=== PATIENT | female | born 1965 | race American Indian/Alaskan Native ===

== ENCOUNTER 2016-08-20 06:12 | Day surgery (SDC) | payer BC ==
[2016-08-16 13:49] LABS: Basophils % (Auto) 0.6 % (0.0-1.8); Eosinophils % (Auto) 2.1 % (0.0-4.3); Hematocrit 31.3 % (30.3-42.9); Hemoglobin 10.4 gm/dl (10.1-14.3); Mean Corpuscular HGB Conc 33 % (30-34); Mean Corpuscular Hemoglobin 30 pg (28-32); Mean Corpuscular Volume 90 fl (79-97); Platelet Count 228 K/mm3 (140-440); Red Blood Count 3.49 M/mm3 (3.65-5.03); Red Cell Distribution Width 15.5 % (13.2-15.2); White Blood Count 6.3 K/mm3 (4.5-11.0)
[2016-08-16 14:04] LABS: Alanine Aminotransferase 18 units/L (7-56); Albumin 3.9 g/dL (3.9-5); Albumin/Globulin Ratio 1.3 %; Alkaline Phosphatase 73 units/L (35-129); Anion Gap 14 mmol/L; BUN/Creatinine Ratio 26.66; Bilirubin,Total 0.5 mg/dL (0.1-1.2); Blood Urea Nitrogen 16 mg/dL (7-17); Carbon Dioxide 27 mmol/L (22-30); Chloride 99.9 mmol/L (98-107); Glucose 104 mg/dL (65-100); Potassium 3.5 mmol/L (3.6-5.0); Sodium 137 mmol/L (137-145); Total Protein 6.9 g/dL (6.3-8.2)
[~2016-08-20 06:12] MED LIST: NACL 0.9% 1000 ML 1,000 ML IV SCH; PEPCID PO NR; VERSED IV NR
[2016-08-20] MEDS ORDERED: NACL BACTERIOSTATIC INFILTRATI ONE (06:15)
[2016-08-20] MEDS ORDERED: MARCAINE 0.25% INFILTRATI ONE ×3 (06:56→08:02)
[2016-08-20] MEDS ORDERED: XYLOCAINE 1%/ EPI 1:100,000 INFILTRATI ONE ×4 (06:57→08:02)
[2016-08-20] MEDS ORDERED: ANCEF/STERILE WATER 2 GM/20 ML IV NR (07:00)
[2016-08-20] MEDS ORDERED: ZOFRAN IV PRN (07:08)
[2016-08-20] MEDS ORDERED: DILAUDID IV PRN (07:08)
--- NOTE | 2016-08-20 07:09 | Anesthesia Day of Surgery ---
Anesthesia Day of Surgery - Day of Surgery Patient Examined: Yes Patient H&P Reviewed: Yes Patient is NPO: Yes Beta Blockers: No Cardiac Clearance: No Pulmonary Clearance: No
--- NOTE | 2016-08-20 07:11 | Anesthesia Consultation ---
Anesthesia Consult and Med Hx Date of service: 08/20/16 - Airway Anesthetic Teeth Evaluation: Good ROM Head & Neck: Adequate Mental/Hyoid Distance: Inadequate Mallampati Class: Class III Intubation Access Assessment: Probably Good - Pulmonary Exam CTA: Yes (clear blbs) - Cardiac Exam Cardiac Exam: RRR - Pre-Operative Health Status ASA Pre-Surgery Classification: ASA3 Proposed Anesthetic Plan: General - Pulmonary SOB: No Hx Sleep Apnea: (HIGH RISK) - Cardiovascular System Hx Hypertension: Yes - Central Nervous System Hx Neuromuscular Disorder: Yes (RA) Hx Back Pain: (THORACIC SPONDYLOSIS NOTED ON PCP NOTES) Hx Psychiatric Problems: No - Gastrointestinal Hx Ulcer: Yes (gerd) - Hematic Hx Anemia: Yes - Other Systems Hx Alcohol Use: Yes (WINE ON SPECIAL OCCASIONS) Hx Substance Use: No Hx Cancer: No
[2016-08-20] MEDS ORDERED: DIPRIVAN 10 MG/ML IV ONE (07:12)
[2016-08-20] MEDS ORDERED: SUBLIMAZE ONE (07:12)
[2016-08-20] MEDS ORDERED: DECADRON ONE (07:32)
[2016-08-20] MEDS ORDERED: LACTATED RINGERS 1,000 ML IV SCH (08:00)
[2016-08-20] MEDS ORDERED: QUELICIN ONE (08:27)
[2016-08-20] MEDS ORDERED: XYLOCAINE MPF 2% ONE (08:27)
[2016-08-20] MEDS ORDERED: NEOSTIGMINE ONE (08:27)
[2016-08-20] MEDS ORDERED: ZEMURON IV ONE (08:27)
[2016-08-20] MEDS ORDERED: ZOFRAN ONE (08:27)
[2016-08-20] MEDS ORDERED: ROBINUL ONE (08:27)
--- NOTE | 2016-08-20 09:16 | Post Operative Note ---
Pre-op diagnosis: 1. Calcaneal Spur right 2. Achilles tendinosis right Post-op diagnosis: same Findings: See operative report. Procedure: 1. Achilles debridement and repair right side. 2. Calcaneal spur ressection right side. Anesthesia: GETA Surgeon: JOHANN JOHNSON Estimated blood loss: 50-100ml Pathology: list (Bone spur right calcaneus) Specimen disposition: to lab Condition: stable Disposition: same day
--- NOTE | 2016-08-20 09:17 | Discharge Summary ---
Short Stay Discharge Plan Activity: no restrictions Weight Bearing Status: Non-Weight Bearing Diet: regular Wound: keep clean and dry Follow up with: GENEVIEVE DOUGLAS MD [Primary Care Provider] - 7 Days
--- NOTE | 2016-08-20 10:10 | Post Anesthesia Evaluation ---
- Post Anesthesia Evaluation Patient Participated: No (resting) Airway Patent: Yes Stable Respiratory Function: Yes Nausea/Vomiting: No Temp > 96.8F: Yes Pain Manageable: Yes Adequeate Hydration: Yes Anesthesia Complications: No Block Receding Appropriately: Not Applicable Patient on Ventilator: No
--- NOTE | 2016-08-20 10:16 | Operative Report ---
SURGEON: Rakan Lea DPM. DUMBWAITER OPERATOR: None. PREOPERATIVE DIAGNOSIS: 1.Painful Achilles tendinosis, right side. 2.Calcaneal heel spur, right side. POSTOPERATIVE DIAGNOSIS: 1.Painful Achilles tendinosis, right side. 2.Calcaneal heel spur, right side. PROCEDURE: 1.Achilles tendon debridement and repair, right side. 2.Calcaneal spur resection, right side. ANESTHESIA: General inhalational with local anesthetic consisting of 1% lidocaine with epinephrine and 0.25% Marcaine plain 50:50 mixture x approximately 20 mL. HEMOSTASIS: Epinephrine and local 1:200,000. ESTIMATED BLOOD LOSS: Approximately 50 mL. MATERIALS: Mitek G2 anchor x 1. INJECTABLES: Local as above. PATHOLOGY: Bone sent for path. COMPLICATIONS: None. . OPERATIVE SUMMARY: On this date, the patient was deemed an appropriate surgical candidate, brought to the operating room and placed on the operating table in the prone position after induction of general inhalational anesthesia. The right foot, ankle and leg were prepped and draped in the usual sterile fashion and following procedure was then carried out. ACHILLES TENDON DEBRIDEMENT AND REPAIR, RIGHT SIDE: Attention was directed to the posterior aspect of the calcaneal region where with a local anesthetic was carried out. Then, longitudinal incision was carried out along the posterior midline calcaneal region. Dissection was carried through the skin layer and down to the level of superficial fascia with care to protect neurovascular structures. Electrocautery was deemed necessary for surgical hemostasis. Dissection was carried through this layer down to the level of the deep fascia. Deep fascia was notably thickened and scarred. A very large bursa was noted in this area and this was excised. Dissection was carried down through the deep fascia and paratenon with care to preserve this layer. Then entered into the Achilles tendon where it was notably thickened and irritated. I debrided a substantial amount of thickness off of the tendon. There was then notable calcaneal spurs on the dorsal aspect of the posterior tibial as well as the insertional area of the Achilles. The Achilles was then T'd out at the calcaneal spur region and this led to the following procedure. CALCANEAL SPUR RESECTION, RIGHT SIDE: Attention was then directed to these posterior spurs were 10 mm osteotomes were used to resect both spurs from this area. An offset reciprocating rasp was then used to smooth all rough remaining edges. This notably restored the contour to the posterior calcaneal area and allowed for debulking of this area. Once this was carried out, the resumption of the Achilles tendon repair then was carried out. I went ahead and inserted a G2 anchor into the posterior calcaneal region after drilling a hole. Once this was done and the anchor was noted to be satisfactory, pass the suture tags from the suture to the two slips of the Achilles tendon and these were then further anchored to the inferior slip of the T'd incision. Excellent repair was noted with two substantial knots grabbing all three corners of the Achilles. At this point, 2-0 Vicryl was used to augment this repair and repair of the medial lateral slips of the Achilles. The wound was flushed with copious amounts of normal sterile saline. Closure of 3-0 Vicryl was used along longitudinal pathway followed by a 4-0 and 5-0 absorbable suture in the subcutaneous layer as well as the subcuticular layer. The wound was painted with Betadine. Steri-Strips were applied. A dry sterile dressing followed by a posterior splint was then applied to the leg with the foot in gravity equinus. After the posterior splint was applied, the patient was then awakened, returned to supine position. The patient tolerated the above procedure well without complications. Vital signs stable throughout. She will be transferred to the recovery room and instructed to remain nonweightbearing on this extremity. She will follow up in the office in 1 week. JOB# [id number] RADHA/LOGAN
[2016-08-20 16:51] VITALS: BP 129/68
--- NOTE | 2016-08-21 02:05 | Admit Criteria Form ---
Admission Criteria Documentation: AMBULATORY SURGERY EXCEPTION CRITERIA Ambulatory Surgery Exception Criteria ( Place 'X' for any and all applicable criteria): Surgery or procedure performed on ambulatory basis may require inpatient stay for[A] ANY ONE of the following(1)(2)(3)(4)(5)(6)(7)(8)(9): [X] I. A preoperative situation, condition, or finding that warrants inpatient stay as indicated by ANY ONE of the following: [] a) Inpatient care needed because of severity of a disease or condition rather than the surgery (eg, severe cardiac or respiratory disease, severe infection) (15) (16 ) (17) (18) [] b) Emergent procedure (eg, angioplasty for acute ischemia)(19) [] c) Complex surgical approach or situation as indicated by ANY ONE of the following(3): [] i) Open approach needed instead of usual endoscopic, transcatheter, or other less invasive procedure [] ii) Difficult approach because of previous operation [] iii) Airway monitoring required after open neck procedures(20)(21) [] iv) Large mass requiring unusually extensive dissection [] v) Additional complicating feature requiring inpatient care (eg, drain management)(22(23): [X] d) Major surgery in a pt with high anesthetic risk as indicated by ANY ONE of the following (2)(3)(5)(7)(8): [X] i) ASA risk class III or higher (severe systemic disease impairing function) [D] [] ii) Advanced age (eg, older than 85 years)(14)(24) [] iii) Symptomatic heart failure(25) [] iv) Symptomatic asthma or COPD(8)(21) [] v) Morbid obesity with hemodynamic or respiratory problems(20)( 21)(26)(27) [] vi) Obstructive sleep apnea(20)(21) [] vii) Former premature infants who are younger than 60 weeks [] viii) High risk for severe postoperative abnormalities (eg, severe postoperative hypocalcemia after parathyroidectomy for severe hyperparathyroidism)(27)( 28) [] ix) Unstable angina(25) [] e) Drug-related risk requiring inpatient stay as indicated by ANY ONE of the following(5)(10)(14)(32)(33) [] i) Procedure requires discontinuing drugs or other therapy (eg , antiarrhythmic medication, antiseizure medication), which necessitates inpatient observation or treatment.(18)(31) [] ii) Major surgery and high risk drug use as indicated by ANY ONE of the following: [] 1) Active abuse of cocaine or similar drug [] 2) Monoamine oxidase inhibitor use [] 3) Other drug identified as posing risk [] f) Inadequate outpatient care situation as indicated by ANY ONE of the following(5)(10)(14)(32)(33) [] i) Patient lives remote from medical facility and procedure has urgent complication potential, and temporary nearby residence cannot be arranged [] ii) Patient will have postprocedure incapacitation and inadequate assistance at home, or alternative level of care cannot be arranged. [] iii) Patient will have long general anesthesia or procedure side effect resolution time, and competent person to stay with patient on first postoperative night at home or alternative level of care cannot be arranged. []iv) Other inadequate outpatient situation that cannot be handled by other means [] II. A perioperative event, condition, or finding that warrants inpatient stay as indicated by ANY ONE of the following (1)(2)(3): [] a) Inadequate physiologic recovery: cardiovascular, respiratory, or hemodynamic status not normal or near preoperative baseline(18) [] b) Hemodynamic instability [] c) Patient not alert with near normal or baseline mental status [] d) Temperature not normal or as expected and not appropriate for outpatient treatment of condition [] e) Ambulatory or appropriate activity level status not yet achieved post procedure [E](34)(35)(36) [] f) Operative site not appropriate (eg, unexpected or excessive drainage or bleeding) [] g) Postoperative effects not resolved or adequately managed (eg, significant pain or vomiting not appropriate for outpatient or next level of care)(10)(12) [] h) Complicating features requiring inpatient care as indicated by ANY ONE of the following(37): [] i) Severe complications of procedure (eg, bowel injury, airway compromise, vascular injury,severe hemorrhage) [] ii) Extensive (eg, dissection far beyond usual scope of procedure ) or prolonged (eg, 120 minutes beyond usual) surgery needed requiring inpatient postoperative care [] iii) Conversion to an open or complex procedure that requires inpatient care (eg, open vs laparoscopic cholecystectomy, abdominal vs vaginal hysterectomy)(38) [] iv) Comorbid condition or test result identified during or post procedure that requires inpatient care (7) [] v) Malignant hyperthermia(30) [] vi) Other complicating feature requiring inpatient care(22)(23) Inpatient stay may be needed until ALL of the following are present (1)(2)(3)(4) (5)(6)(10)(14)(33)(40): []a) Physiologic recovery: cardiovascular, respiratory, and hemodynamic status normal or near preoperative baseline []b) Hemodynamic stability []c) Patient alert, with near normal or baseline mental status []d) Temperature appropriate: patient afebrile or temperature appropriate for outpt treatment of condition []e) Activity level appropriate: ambulatory or appropriate activity level post procedure []f) Operative site appropriate as indicated by ALL of the following: []i) Site dry or with expected drainage []ii) Any blood noted is as expected for procedure. []g) Postoperative effects resolved or managed as indicated by ALL of the following: []i) Pain management appropriate for outpatient (or next level of) care(10) []ii) Minimal nausea and vomiting: if present, successfully treated with oral medication(12) []iii) Headache, dizziness, or drowsiness (if present) are mild. []h) Voiding status acceptable as indicated by ANY ONE of the following: []i) Voiding spontaneously []ii) No voiding but instructions given for follow-up in 6 to 8 hours []iii) Urinary catheter in place, and instructions given for follow-up []i) Complicating features requiring inpatient care manageable at a lower level of care(37) []j) Comorbid conditions manageable at a lower level of care(37) The original [employer] content created by [employer] has been revised. The portions of the content which have been revised are identified through the use of italic text or in bold, and [facility] [employer] has neither reviewed nor approved the modified material. All other unmodified content is copyright [employer]. Please see references footnoted in the original [employer] edition 2016 Admission Criteria Met: Yes
== END 2016-08-20 11:15 | disposition home or self-care (01) ==
LOC: OR 06:12
PROVIDERS: ATTEND Podiatrist Foot & Ankle Surgery
DX: M76.61 Achilles tendinitis, right leg (principal); M77.31 Calcaneal spur, right foot; I10 Essential (primary) hypertension; M06.9 Rheumatoid arthritis, unspecified; K21.9 Gastro-esophageal reflux disease without esophagitis; D64.9 Anemia, unspecified; E66.9 Obesity, unspecified; Z68.38 Body mass index [BMI] 38.0-38.9, adult; Z72.89 Other problems related to lifestyle; Z87.19 Personal history of other diseases of the digestive system
CPT/HCPCS: 27650; 28119; 36415; 80053; 84703; 85025; 88304; 88311; C1713; J0330; J0690; J1100; J2250; J2405; J2704; J2710; J3010; J7030